=== PATIENT | female | born 1980 | race Caucasian/White ===

== ENCOUNTER 2025-04-04 09:07 | Outpatient (CLI) | payer MEDICAID ==
--- NOTE | 2025-04-04 12:20 | RADIOLOGY REPORT ---
MR brain HISTORY: CENTRAL SLEEP APNEA TECHNIQUE: MR was performed with a surface coil at 1.5 T magnet. Sagittal, axial and coronal T1 and T 2-weighted images were obtained. Following IV administration of 15 cc gadavist postcontrast images we re obtained FINDINGS: No areas of restricted diffusion on diffusion-weighted images. No areas of T2 star signal hypointensity on gradient echo images. Small ill-defined areas of T2 signal hyperintensity bilaterally in the subcortical white matter of th e frontal lobes. These do not enhance on postcontrast images No hydrocephalus or midline shift. No extra-axial masses or fluid collections. Orbits, sella, and cerebellopontine angles are unremarkable in appearance. Slight mucosal thickening right mastoid sinus air cells. 2 cm solid enhancing mass left maxillary sinus IMPRESSION: 1. No evidence of acute intracranial pathology. 2. There is a 2 cm solid enhancing lesion in the left maxillary sinus probably unrelated to patient's symptoms. Recommend ENT consultation for further workup
[2025-04-04] MEDS ORDERED: GADOTERATE MEGLUMINE 7.5 MMOL/15 ML VIAL IV ONE (17:51)
== END 2025-04-04 23:59 | disposition home or self-care (01) ==
LOC: MRI 09:07
PROVIDERS: ATTEND Nurse Practitioner
DX: G47.31 Primary central sleep apnea (principal); J32.0 Chronic maxillary sinusitis
CPT/HCPCS: 70553; A9575

== ENCOUNTER 2025-08-24 12:14 | Outpatient (CLI) | payer MEDICAID ==
--- NOTE | 2025-08-24 13:46 | RADIOLOGY REPORT ---
CLINICAL INFORMATION: UNSPECIFIED ABNORMALITIES OF GAIT AND MOBILITY. TECHNIQUE: Multisequence multiplanar MRI images of the cervical spine were obtained without contrast. COMPARISON: No prior imaging of the cervical spine was available for comparison at the time of dictation. FINDINGS: Bones: Straightening of the normal cervical lordosis. No significant spondylolisthesis. Vertebral body heights are maintained. Posterior elements are intact. No acute fracture. No focal suspicious marrow signal abnormality. Spinal cord: Spinal cord is normal in signal intensity and morphology. Paraspinal soft tissues: Paraspinal and prevertebral soft tissues are unremarkable. Other: Motion artifact limits evaluation. Cervical disc levels: C2-C3: Disc desiccation. No significant spinal canal or neural foraminal stenosis. C3-C4: Disc desiccation. No significant spinal canal or neural foraminal stenosis. C4-C5: Disc desiccation. Mild disc bulge mildly indenting the ventral aspect of the thecal sac. No significant spinal canal stenosis. Facet and uncinate hypertrophy with mild left neural foraminal stenosis. C5-C6: Disc desiccation with mild disc space narrowing and diffuse disc bulge mildly indenting the ventral aspect of the thecal sac. There is a mild degree of spinal canal stenosis and partial effacement of the lateral recesses. Facet and uncinate hypertrophy with [id number] bilateral neural foraminal stenoses, left greater than right. C6-C7: Disc desiccation with moderate disc space narrowing and diffuse disc bulge with superimposed right subarticular disc protrusion causing moderate spinal canal stenosis and partial effacement of the lateral recesses, right greater than left. Small thin annular fissure. Facet and uncinate hypertrophy with [id number] left neural foraminal stenosis. C7-T1: Disc desiccation. No significant spinal canal or neural foraminal stenosis. IMPRESSION: 1. Motion limited study. 2. Multilevel degenerative disc disease and facet/ uncinate disease in the cervical spine with associated spinal canal, subarticular, and neural foraminal stenoses as detailed above. 3. Straightening of the normal cervical lordosis. No significant spondylolisthesis. 4. Additional findings as described above.
== END 2025-08-24 23:59 | disposition home or self-care (01) ==
LOC: MRI02 12:14
PROVIDERS: ATTEND Neuromusculoskeletal Medicine & OMM
DX: M50.123 Cervical disc disorder at C6-C7 level with radiculopathy (principal); R26.9 Unspecified abnormalities of gait and mobility; M48.02 Spinal stenosis, cervical region; M47.22 Other spondylosis with radiculopathy, cervical region
CPT/HCPCS: 72141